=== PATIENT | male | born 1970 | race Two or more races ===

== ENCOUNTER → 2020-04-02 | Emergency (ER) | payer MEDICAID, OTHER ==
[~2020-04-02] VITALS: Ht 172.7 cm; Wt 86.2 kg
[~2020-04-02] MED LIST: GLUCAGON HYDROCHLORIDE (RDNA) 1 MG VIAL IV ONE
[2020-04-02 21:38] VITALS: BP 148/81
== END | disposition short-term general hospital (02) ==
LOC: EDUNIT# 18:56 → ER 19:05 → EDBD 19:05
DX: T17.320A Food in larynx causing asphyxiation, initial encounter (principal); E11.9 Type 2 diabetes mellitus without complications; X58.XXXA Exposure to other specified factors, initial encounter; Y93.9 Activity, unspecified; Y99.8 Other external cause status; Y92.89 Other specified places as the place of occurrence of the external cause
CPT/HCPCS: 70490; 82962

== ENCOUNTER 2022-09-19 16:56 | Emergency (ER) | payer MEDICAID ==
[2022-09-22] MEDS ORDERED: AZIT500T66 PO (15:28)
[2022-09-22] MEDS ORDERED: LIDO2SOL23 MT (15:28)
== END 2022-09-19 18:16 | disposition left against medical advice (07) ==
LOC: ER 16:56
DX: K14.6 Glossodynia (principal); Z53.21 Procedure and treatment not carried out due to patient leaving prior to being seen by health care provider